=== PATIENT | male | born 1965 | race Caucasian/White ===

== ENCOUNTER 2024-05-01 14:17 | Inpatient (IN) | payer MEDICARE ==
[2024-05-01 15:24] VITALS: BMI 31.0
[2024-05-01] MEDS: fentaNYL 50 mcg/mL 1 mL Vial SLOW IVP PRN (18:23)
[2024-05-01] MEDS: FLU (Fluarix Triv) TS24-25(6MOS UP)/PF 45 MCG/0.5 ML Syringe IM ONE (18:25)
[2024-05-01] MEDS: fentaNYL 50 mcg/mL 1 mL Vial SLOW IVP SCH (20:06)
[2024-05-01] MEDS: Naproxen 500 MG TAB PO SCH (21:20)
[2024-05-01] MEDS ORDERED: Amitriptyline HCl 25 MG TAB PO PRN (22:08)
[2024-05-01] MEDS: Acetaminophen 325 MG TAB PO SCH (23:27)
[2024-05-02] MEDS: fentaNYL 50 mcg/mL 1 mL Vial SLOW IVP PRN (00:56)
[2024-05-02 05:06] LABS: #Basophils 0.05 10x3/uL (0.0-0.2); %Basophils 0.8 % (0.0-1.0); %Eosinophils 3.2 % (0.0-10.0); %Lymphocytes 34.8 % (21.0-51.0); %Monocytes 11.1 % (0.0-10.0); %Neutrophils 49.8 % (42.0-75.0); Hematocrit 40.1 % (42.0-52.0); Hemoglobin 13.3 g/dL (14.0-18.0); Mean Corpuscular HGB CONC 33.2 g/dL (32.0-36.0); Mean Corpuscular Hemoglobin 28.7 pg (27.0-31.0); Mean Corpuscular Volume 86.6 fL (78.0-98.0); Mean Platelet Volume 10.8 fL (7.4-10.4); Platelet Count 236 10x3/uL (130-400); RBC Distribution Width 12.9 % (11.5-14.5); Red Blood Cell (RBC) Count 4.63 mill/uL (4.70-6.10)
[2024-05-02] MEDS: HYDROcodone/Acetaminophen 10/325 mg Tablet PO PRN (05:34)
[2024-05-02 05:42] LABS: Anion Gap 11 mmol/L (10-20); BUN (Urea Nitrogen) 20 mg/dL (8.4-25.7); Calc. Creatinine Clearance 80 mL/min (70-130); Calcium 9.2 mg/dL (7.8-10.44); Carbon Dioxide 24 mmol/L (22-29); Chloride 105 mmol/L (98-107); Estimated GFR 61; Glucose 72 mg/dL (70-105); Potassium 4.4 mmol/L (3.5-5.1); Sodium 136 mmol/L (136-145)
[2024-05-02] MEDS: Enoxaparin 40 MG (0.4 mL) SYRINGE SC SCH (08:33)
[2024-05-02] MEDS: Lisinopril 10 MG TAB PO SCH (08:33)
[2024-05-02] MEDS: Gabapentin 300 MG CAP PO SCH (08:34)
[2024-05-02] MEDS ORDERED: Gabapentin 300 MG CAP PO SCH (09:00)
[2024-05-02] MEDS ORDERED: Ondansetron ORAL SOLN. 4 MG/5 ML UDCUP PO PRN (11:04)
[2024-05-02] MEDS: Lactated Ringer's 1,000 ML IV SCH (11:13)
[2024-05-02] MEDS ORDERED: Iopamidol-370 76% 500 ML MDV (1 ML CHARGE) ONE (12:41)
[2024-05-02 13:44] LABS: Bacteria/HPF None Seen HPF (None Seen); Bilirubin Negative (Negative); Blood, Urine 2+ (Negative); CAUTI Indications for Culture Dysuria,urgency,freq; Clarity Clear (Clear); Glucose, Urine (Dipstick) Normal (Negative); Ketone, Urine 10 mg/dL (Negative); Leukocyte Negative Leu/uL (Negative); Nitrite Negative (Negative); Protein, Urine (Dipstick) 10 mg/dL (Neg-Trace); RBC/HPF 21-50 HPF (0-3); Specific Gravity, Urine 1.011 (1.002-1.036); Squamous Epithelial None Seen HPF (0-3)
[2024-05-02 13:47] LABS: Urine Culture Reflex Yes Yes
[2024-05-02] MEDS: GoLYTELY 4,000 ml Bottle PO SCH (14:59)
[2024-05-02] MEDS ORDERED: fentaNYL 50 mcg/mL 1 mL Vial SLOW IVP PRN (15:26)
[2024-05-02] MEDS ORDERED: Ketorolac Tromethamine 30 MG (1 mL) VIAL IVP PRN (15:28)
[2024-05-02 15:43] VITALS: BMI 31.0
[2024-05-02] MEDS ORDERED: diphenhydrAMINE 50 MG/ML VIAL IVP PRN (16:11)
[2024-05-02] MEDS ORDERED: Promethazine HCl 25 MG/ML VIAL IM PRN (16:11)
[2024-05-02] MEDS ORDERED: Naloxone HCl 0.4 mg/ml Vial IV PRN (16:11)
[2024-05-02] MEDS ORDERED: diphenhydrAMINE 50 MG/ML VIAL IM PRN (16:11)
[2024-05-02] MEDS ORDERED: diphenhydrAMINE 25 MG CAP PO PRN (16:11)
[2024-05-02] MEDS ORDERED: Communication Order-Pharmacy FS SCH (16:15)
[2024-05-02] MEDS: HYDROmorphone/PF 10 MG in Sodium Chloride 0.9% 99 ML IV PRN (17:22)
[2024-05-02] MEDS: Tamsulosin HCl 0.4 MG CAP PO SCH (20:12)
[2024-05-02] MEDS: Ondansetron ODT 4 MG TAB PO PRN (21:00)
[2024-05-03] MEDS: Ondansetron PF 4 MG/2 ML Vial IVP PRN (01:36)
[2024-05-03 05:54] LABS: #Basophils 0.04 10x3/uL (0.0-0.2); %Basophils 0.7 % (0.0-1.0); %Eosinophils 2.6 % (0.0-10.0); %Monocytes 7.9 % (0.0-10.0); %Neutrophils 58.4 % (42.0-75.0); Hematocrit 40.5 % (42.0-52.0); Hemoglobin 13.5 g/dL (14.0-18.0); Mean Corpuscular HGB CONC 33.3 g/dL (32.0-36.0); Mean Corpuscular Hemoglobin 29.3 pg (27.0-31.0); Mean Corpuscular Volume 87.9 fL (78.0-98.0); Mean Platelet Volume 10.4 fL (7.4-10.4); Platelet Count 256 10x3/uL (130-400); RBC Distribution Width 12.8 % (11.5-14.5); Red Blood Cell (RBC) Count 4.61 mill/uL (4.70-6.10)
[2024-05-03 06:24] LABS: Anion Gap 11 mmol/L (10-20); BUN (Urea Nitrogen) 14 mg/dL (8.4-25.7); Calc. Creatinine Clearance 105 mL/min (70-130); Calcium 9.1 mg/dL (7.8-10.44); Carbon Dioxide 27 mmol/L (22-29); Chloride 101 mmol/L (98-107); Estimated GFR 85; Glucose 86 mg/dL (70-105); Potassium 4.2 mmol/L (3.5-5.1); Sodium 135 mmol/L (136-145)
[2024-05-03] MEDS ORDERED: PROPOFOL 40 ML ONE (13:36)
[2024-05-03] MEDS ORDERED: Lidocaine 1% PF 5 ML VIAL ONE (13:36)
[2024-05-03] MEDS ORDERED: PROPOFOL 20 ML ONE (13:51)
[2024-05-03] MEDS ORDERED: Promethazine HCl 25 MG/ML VIAL IM PRN (13:54)
[2024-05-03] MEDS ORDERED: Ondansetron HCl/PF 4 MG/2 ML Vial IVP PRN (13:54)
[2024-05-03 23:41] LABS: Hematocrit 35.5 % (42.0-52.0); Hemoglobin 11.9 g/dL (14.0-18.0); Platelet Count 221 10x3/uL (130-400)
[2024-05-04 05:12] LABS: #Basophils 0.04 10x3/uL (0.0-0.2); %Basophils 0.8 % (0.0-1.0); %Eosinophils 3.7 % (0.0-10.0); %Lymphocytes 33.4 % (21.0-51.0); %Monocytes 10.6 % (0.0-10.0); %Neutrophils 51.3 % (42.0-75.0); Hematocrit 34.4 % (42.0-52.0); Hemoglobin 11.4 g/dL (14.0-18.0); Mean Corpuscular HGB CONC 33.1 g/dL (32.0-36.0); Mean Corpuscular Hemoglobin 28.9 pg (27.0-31.0); Mean Corpuscular Volume 87.1 fL (78.0-98.0); Mean Platelet Volume 10.9 fL (7.4-10.4); Platelet Count 219 10x3/uL (130-400); RBC Distribution Width 12.9 % (11.5-14.5); Red Blood Cell (RBC) Count 3.95 mill/uL (4.70-6.10)
[2024-05-04] MEDS: Lactated Ringer's 1,000 ML IV SCH (05:12)
[2024-05-04 05:58] LABS: Anion Gap 9 mmol/L (10-20); BUN (Urea Nitrogen) 7 mg/dL (8.4-25.7); Calc. Creatinine Clearance 100 mL/min (70-130); Calcium 8.8 mg/dL (7.8-10.44); Carbon Dioxide 27 mmol/L (22-29); Chloride 106 mmol/L (98-107); Estimated GFR 80; Glucose 95 mg/dL (70-105); Potassium 4.8 mmol/L (3.5-5.1); Sodium 137 mmol/L (136-145)
[2024-05-04 07:18] LABS: Troponin I Less than 0.010 ng/mL (< 0.028)
[2024-05-04] MEDS: Pantoprazole DR 40 MG TAB PO SCH (10:56)
[2024-05-04] MEDS ORDERED: Diclofenac 1% 50 GM TOPICAL GEL TP PRN (22:50)
[2024-05-05] MEDS: Diclofenac 1% 50 GM TOPICAL GEL TP PRN (05:48)
[2024-05-05 07:36] LABS: #Basophils 0.03 10x3/uL (0.0-0.2); %Basophils 0.7 % (0.0-1.0); %Eosinophils 3.7 % (0.0-10.0); %Lymphocytes 30.9 % (21.0-51.0); %Monocytes 9.4 % (0.0-10.0); %Neutrophils 55.1 % (42.0-75.0); Hemoglobin 12.1 g/dL (14.0-18.0); Mean Corpuscular HGB CONC 32.7 g/dL (32.0-36.0); Mean Corpuscular Hemoglobin 28.5 pg (27.0-31.0); Mean Corpuscular Volume 87.1 fL (78.0-98.0); Platelet Count 234 10x3/uL (130-400); Red Blood Cell (RBC) Count 4.25 mill/uL (4.70-6.10)
[2024-05-05 08:01] LABS: Anion Gap 12 mmol/L (10-20); BUN (Urea Nitrogen) 4 mg/dL (8.4-25.7); Calc. Creatinine Clearance 105 mL/min (70-130); Calcium 9.5 mg/dL (7.8-10.44); Carbon Dioxide 29 mmol/L (22-29); Chloride 105 mmol/L (98-107); Estimated GFR 85; Glucose 87 mg/dL (70-105); Potassium 3.7 mmol/L (3.5-5.1); Sodium 142 mmol/L (136-145)
[2024-05-05 08:18] VITALS: BP 143/91; TEMP 98.1
[2024-05-05] MEDS: Polyethylene Glycol 3350 17 GM Packet PO PRN (08:22)
[2024-05-05] MEDS ORDERED: Diclofenac 1% 50 GM TOPICAL GEL TP SCH (09:00)
[2024-05-05] MEDS: HYDROcodone/Acetaminophen 10/325 mg Tablet PO PRN (12:19)
[2024-05-06 12:02] LABS: ANA Symphony (Qualitative) Negative (Negative); ANA Symphony (Quantitative) 0.2 Ratio (< 0.7 Negative); dsDNA IgG Antibody 0.9 IU/mL (<10 Negative)
[2024-05-06 13:18] LABS: % Free PSA 31.4 % (.); Total PSA 0.7 ng/mL (0.0-4.0)
== END 2024-05-05 16:12 | disposition home or self-care (01) | DRG 394 ==
LOC: T4-A 15:10 → OBSVTOIN 19:00
PROVIDERS: ADMIT Family Medicine; ATTEND Family Medicine
PROC: 0DJ08ZZ Inspection of Upper Intestinal Tract, Via Natural or Artificial Opening Endoscopic (ICD-10-PCS; principal; 2024-05-03)
PROC: 0DBK8ZZ Excision of Ascending Colon, Via Natural or Artificial Opening Endoscopic (ICD-10-PCS; 2024-05-03)
PROC: 0DBL8ZZ Excision of Transverse Colon, Via Natural or Artificial Opening Endoscopic (ICD-10-PCS; 2024-05-03)
PROC: 0DBN8ZZ Excision of Sigmoid Colon, Via Natural or Artificial Opening Endoscopic (ICD-10-PCS; 2024-05-03)
DX: K63.5 Polyp of colon (principal); K65.4 Sclerosing mesenteritis; N17.9 Acute kidney failure, unspecified; Z88.0 Allergy status to penicillin; Z79.899 Other long term (current) drug therapy; I10 Essential (primary) hypertension; Z98.890 Other specified postprocedural states; R33.9 Retention of urine, unspecified; Z66 Do not resuscitate; R59.0 Localized enlarged lymph nodes; K21.9 Gastro-esophageal reflux disease without esophagitis
CPT/HCPCS: 36415; 74178; 80048; 81001; 82306; 82787; 83615; 84134; 84153; 84154; 84484; 85025; 86038; 86141; 86225; 87086; 88305; 93005; 93010; J1170; J1650; J2405; J2704; J3010; J7120; Q0162; Q9967

== ENCOUNTER 2025-03-18 18:30 | Emergency (ER) | payer MEDICARE ==
[2025-03-18] MEDS ORDERED: Ketorolac Tromethamine 30 MG (1 mL) VIAL ONE ×2 (19:13→20:14)
== END 2025-03-19 02:12 | disposition home or self-care (01) ==
LOC: ERS 18:30
DX: S80.211A Abrasion, right knee, initial encounter (principal); M17.11 Unilateral primary osteoarthritis, right knee; I10 Essential (primary) hypertension; J44.9 Chronic obstructive pulmonary disease, unspecified; Z87.891 Personal history of nicotine dependence; W06.XXXA Fall from bed, initial encounter
CPT/HCPCS: 96374; 96375; J1885; J3010